=== PATIENT | male | born 1940 | race Hispanic/Latino ===

== ENCOUNTER 2017-03-14 13:01 | Observation (INO) | payer MEDICARE, BC ==
[2017-03-14] MEDS ORDERED: Sodium Chloride 0.9% 1,000 ML IV ONE ×2 (13:44→16:11)
--- NOTE | 2017-03-14 13:49 | C.PDOC ---
History Of Present Illness Jamaal is a 76 y/o male presenting to the ED for complaints of vomiting and diarrhea since Wednesday. He reports that he spoke to his PMD, Dr. Hall, who suggested symptoms were indicative of gastroenteritis. Patient reports symptoms continued today, and he developed decreased appetite, so he came to the ED. Denies any associated chest pain, shortness of breath, abdominal pain, fever, urinary frequency, dysuria, or incontinence. Denies recent travel or recent antibiotic use. PMD: Dr. Adrian Hall Time Seen by Provider: 03/14/17 13:22 Chief Complaint (Nursing): Abdominal Pain History Per: Patient History/Exam Limitations: no limitations Onset/Duration Of Symptoms: Days (x 3) Current Symptoms Are (Timing): Still Present Past Medical History Reviewed: Historical Data, Nursing Documentation, Vital Signs Vital Signs: Last Vital Signs Temp 98.3 F 03/14/17 16:45 Pulse 76 03/14/17 16:45 Resp 16 03/14/17 16:45 BP 142/67 03/14/17 16:45 Pulse Ox 99 03/14/17 18:56 - Medical History PMH: Depression Surgical History: Cholecystectomy Family History: States: No Known Family Hx - Social History Hx Alcohol Use: No Hx Substance Use: No Review Of Systems Except As Marked, All Systems Reviewed And Found Negative. Constitutional: Negative for: Fever Cardiovascular: Negative for: Chest Pain, Palpitations, Orthopnea, Edema, Light Headedness Respiratory: Negative for: Cough, Shortness of Breath, SOB with Excertion, Wheezing Gastrointestinal: Positive for: Nausea, Vomiting, Diarrhea. Negative for: Abdominal Pain Genitourinary: Negative for: Dysuria, Frequency, Incontinence Musculoskeletal: Negative for: Back Pain Skin: Negative for: Rash Neurological: Negative for: Weakness, Numbness Physical Exam - Physical Exam Appears: Well, Non-toxic, No Acute Distress Skin: Normal Color, Warm, Dry Head: Atraumatic, Normacephalic Eye(s): bilateral: Normal Inspection, PERRL, EOMI Neck: Normal, Supple Chest: Symmetrical Cardiovascular: Rhythm Regular, No Murmur Respiratory: Normal Breath Sounds, No Accessory Muscle Use Gastrointestinal/Abdominal: Normal Exam, Bowel Sounds (active), Soft, No Tenderness Back: Normal Inspection Extremity: Normal ROM Extremity: Bilateral: Atraumatic, Normal Color And Temperature, Normal ROM Neurological/Psych: Oriented x3, Normal Speech Gait: Steady ED Course And Treatment - Laboratory Results Result Diagrams: 03/14/17 14:13 03/14/17 14:13 O2 Sat by Pulse Oximetry: 99 (RA) Pulse Ox Interpretation: Normal Medical Decision Making Medical Decision Making: Time: 12:51 Patient has complaint of diarrhea and vomiting. Abdomen is soft NT /ND with no complaint of pain. Initial Plan: --Labs ordered --Sodium chloride IV 1000 ml at 1000 mls/hr --Pepcid 20 mg PO --Reglan 10 mg IV --Pending reevaluation 1:15PM. Patient admitted to ED-OBS for vomiting. ED OBSERVATION Discharge: Yes Date of observation admission: 03/14/17 Time of observation admission: 13:15 - Observation admission statement Patient is being placed in observation because:: vomiting and diarrhea - Goals of Observation Goals of observation are:: anti-emetic, fluid hydration - Progress Note Progress Note: 03/14/17 1:15 PM. Patient is resting. Vital signs stable. 3:15PM. Patient continuing to rest. Vital signs stable. 4:11PM. IV fluids continued. 5:15PM. Patient resting comfortably. Fluids infusing. Vitals stable. Pending PO challenge. 03/14/17 18:56 Labs and ua grossly normal. Patient had 2L IVF. On reeval, patient is now tolerating po. He has been monitored in ED for 6 hours and has had no additional episodes of vomiting or diarrhea in ED. On reeval, he has no complaints. Abdomen soft NT/ND and tolerating po. He reports that he will follow-up with PMD Disposition - Disposition Disposition: HOME/ ROUTINE Disposition Time: 18:56 Condition: GOOD - Clinical Impression Clinical Impression: Vomiting and diarrhea - Scribe Statement The provider has reviewed the documentation as recorded by the Geraldo Smith All medical record entries made by the Santoshibe were at my direction and personally dictated by me. I have reviewed the chart and agree that the record accurately reflects my personal performance of the history, physical exam, medical decision making, and the department course for this patient. I have also personally directed, reviewed, and agree with the discharge instructions and disposition.
[2017-03-14 14:17] LABS: BASO % 0.4 % (0.0-2.0); EOS # 0.1 K/uL (0.0-0.7); EOS % 0.8 % (0.0-4.0); HEMATOCRIT 40.6 % (35.0-51.0); LYMPH % 15.1 % (20.0-40.0); MEAN CELL VOLUME 93.6 fL (80.0-94.0); MEAN CORPUSCULAR HEMOGLOBIN 32.7 pg (27.0-31.0); MEAN PLATELET VOLUME 7.1 fL (7.2-11.7); MONO # 0.4 K/uL (0.0-0.8); MONO % 6.5 % (0.0-10.0); RED CELL DISTRIBUTION WIDTH 12.5 % (11.5-14.5); WHITE BLOOD COUNT 6.8 K/uL (4.8-10.8)
[2017-03-14] MEDS ORDERED: Sodium Chloride 0.9% 1,000 ML ONE (14:17)
[2017-03-14 14:29] LABS: CHLORIDE 101 mmol/L (98-107); POTASSIUM 4.3 mmol/L (3.6-5.2); SODIUM 142 mmol/L (132-148)
[2017-03-14 14:31] LABS: ALB/GLOB RATIO 1.4 (1.0-2.1); AST/SGOT 29 U/L (17-59); BILIRUBIN,TOTAL 1.1 mg/dL (0.2-1.3); CARBON DIOXIDE 25 mmol/L (22-30); GFR AFRICAN-AMERICAN > 60; TOTAL PROTEIN 7.2 g/dL (6.3-8.3)
[2017-03-14 14:32] LABS: ALKALINE PHOSPHATASE 75 U/L (38-126); ALT/SGPT 31 U/L (21-72); BLOOD UREA NITROGEN 14 mg/dL (9-20); CALCIUM 9.5 mg/dl (8.6-10.4); GLUCOSE,RANDOM 100 mg/dL (75-110); PHOSPHOROUS 2.9 mg/dL (2.5-4.5)
[2017-03-14 16:37] LABS: RBC URINE 1 /hpf (0-3); URINE BACTERIA RARE (<OCC); URINE BILIRUBIN NEGATIVE (NEGATIVE); URINE BLOOD NEGATIVE (NEGATIVE); URINE COLOR Yellow (YELLOW); URINE GLUCOSE (UA) NORMAL (Normal); URINE KETONE 1+ mg/dL (NEGATIVE); URINE LEUKOCYTE ESTERASE NEG Leu/uL (Negative); URINE PROTEIN NEGATIVE (NEGATIVE); WBC URINE 2 /hpf (0-5)
[2017-03-14 19:07] VITALS: BP 132/75; PULSE 73; RESP 20; TEMP 98.4; O2SAT 98
== END 2017-03-14 18:56 | disposition home or self-care (01) ==
LOC: C.ER 13:01 → C.9OBSV 13:15
PROVIDERS: ADMIT Emergency Medicine; ATTEND Emergency Medicine
DX: R19.7 Diarrhea, unspecified (principal); R11.10 Vomiting, unspecified; Z90.49 Acquired absence of other specified parts of digestive tract; F32.9 Major depressive disorder, single episode, unspecified
CPT/HCPCS: 80053; 81001; 82948; 83690; 83735; 84100; 85025; 96361; 96374; 99285; G0378; J2765; J7040

== ENCOUNTER 2017-08-07 07:58 | Inpatient (IN) | payer MEDICARE, BC ==
--- NOTE | 2017-08-07 08:39 | C.PDOC ---
Time Seen by Provider: 08/07/17 08:28 Chief Complaint (Nursing): Weakness/Neurological Deficit Past Medical History Vital Signs: Last Vital Signs Temp 98.2 F 08/07/17 08:02 Pulse 62 08/07/17 08:02 Resp 16 08/07/17 08:02 BP 120/70 08/07/17 08:02 Pulse Ox 100 08/07/17 08:02 - Medical History PMH: Depression Surgical History: Cholecystectomy - Social History Hx Alcohol Use: No Hx Substance Use: No ED Course And Treatment O2 Sat by Pulse Oximetry: 100 Disposition - Disposition
--- NOTE | 2017-08-07 08:46 | C.PDOC ---
History Of Present Illness 76 years old male presents to ED stating "I'm here because I can't sleep." Dnies pain, other associated symptoms not available. HPI and ROS limited due to Poor historian. LIMITED DUE TO POOR HISTORIAN "I'M HERE BECAUSE I CAN 'T SLEEP". DENIES PAIN, OTHER ASSOC SX. NO OTHER AVAIL FOR ADDL INFO ROS UTO EXAM NAD NONTOXIC APPEARS SLEEPY BUT AROUSABLE TO VOICE HEENT NEG LUNGS CTA B/L NO W/R/R ABD NEG NEURO POOR EFFORT. NO GROSS FOCAL DEF. ?FLAT AFFECT. PSYCH CALM, NO ACUTE PSYCHOSIS, ?INTOX\\ RECTAL +FECAL IMPACT W FECAL INCONT, BROWN STOOL. NO HEMORRHOID. SKIN WNL NO ULCERATIONS REMAINDER NEG Time Seen by Provider: 08/07/17 08:28 Chief Complaint (Nursing): Weakness/Neurological Deficit History Per: Patient History/Exam Limitations: clinical condition (Poor historian) Past Medical History Reviewed: Historical Data, Nursing Documentation, Vital Signs Vital Signs: Last Vital Signs Temp 97.9 F 08/07/17 12:00 Pulse 68 08/07/17 12:00 Resp 16 08/07/17 12:00 BP 136/67 08/07/17 12:00 Pulse Ox 99 08/07/17 12:00 - Medical History PMH: Depression Surgical History: Cholecystectomy Family History: States: No Known Family Hx - Social History Hx Alcohol Use: No Hx Substance Use: No Review Of Systems Review Of Systems: ROS cannot be obtained secondary to pt's inabilty to answer questions. Physical Exam - Physical Exam Appears: Well, Non-toxic, No Acute Distress, Other (SLEEPY BUT AROUSABLE TO VOICE; ) Skin: Normal Color, Warm, Dry, Other (NO ULCERATIONS) Head: Atraumatic, Normacephalic Eye(s): bilateral: Normal Inspection Ear(s): Bilateral: Normal Nose: Normal, No Discharge Oral Mucosa: Moist Chest: Symmetrical, No Tenderness Cardiovascular: Rhythm Regular Respiratory: Normal Breath Sounds (clear to auscultation bilaterally), No Rales , No Rhonchi, No Wheezing Gastrointestinal/Abdominal: Soft, No Tenderness Rectal: No Hemorrhoids, Other (RECTAL +FECAL IMPACT W FECAL INCONT, BROWN STOOL. ) Neurological/Psych: Other (No gross focal deficits;poor effort; Calm; no acute psychosis; Flat affect) ED Course And Treatment - Laboratory Results Result Diagrams: 08/07/17 10:04 08/07/17 10:04 O2 Sat by Pulse Oximetry: 100 (RA) Pulse Ox Interpretation: Normal - Other Rad CXR X-Ray: Viewed By Me, Read By Radiologist Interpretation: PROCEDURE: CHEST RADIOGRAPH, 1 VIEW. HISTORY: AMS. COMPARISON: No prior for comparison. FINDINGS: LUNGS: Clear. PLEURA: No pneumothorax or pleural fluid seen. CARDIOVASCULAR: Normal. OSSEOUS STRUCTURES: No significant abnormalities. VISUALIZED UPPER ABDOMEN: Normal. OTHER FINDINGS: None. IMPRESSION: No active disease. Progress - Re-Evaluation Re-evaluation Note: 08/07/17 09:00 BROTHER @ BEDSIDE: NEW ONSET URINARY AND FECAL INCONT, RECTAL PAIN X 2-3 DAYS. + WT LOSS X 6 MONTHS BUT EATING. NO FEVER, NV. CHANGE IN PSYCH MEDS X 3 WEEKS, CURRENT MENTAL STATUS "IMPROVING SINCE HE STARTED THE NEW MEDS". +PARKINSON SYMPTOMS MED INDUCED BUT IMPROVING. 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 PMD CHRONIC PARETHESIA, RADICULOPATHY, CHRONIC NECK WEAKNESS. CURRENTLY ON MULTIPLE PSYCH MEDS, INSOMNIA MEDS. NEURO DR DAYANARA DANIEL 08/07/17 13:28 D/W DR MYERS C/F PMD WILL ADMIT - Data Reviewed Data Reviewed: Lab, Diagnostic imaging, EKG, Old records - Continuity of Care Discussed patient case with:: Patient, Family-HIPPA compliant, Covering for PMD Medical Decision Making Medical Decision Making: Ordered BG, CT Head, EKG, CXR, blood work, and urinalysis. Administered Iv fluids and Fleet Enema. EKG: Normal sinus rhythm Right bundle branch block No prior EKG for comparison. CXR: Negative. Disposition Counseled Patient/Family Regarding: Studies Performed, Diagnosis - Disposition Disposition: HOSPITALIZED Disposition Time: 13:29 Condition: STABLE Instructions: Weakness (ED) Forms: [facility] ([place]) - POA Present On Arrival: None - Clinical Impression Clinical Impression: Generalized weakness, Weight loss, Constipation - Scribe Statement The provider has reviewed the documentation as recorded by the Santoshibvelma Red All medical record entries made by the Santoshibvelma were at my direction and personally dictated by me. I have reviewed the chart and agree that the record accurately reflects my personal performance of the history, physical exam, medical decision making, and the department course for this patient. I have also personally directed, reviewed, and agree with the discharge instructions and disposition. Decision To Admit - Pt Status Changed To: Hospital Disposition Of: Inpatient - Admit Certification Admit to Inpatient:: After my assessment, the patient will require hospitalization for at least two midnights. This is because of the severity of symptoms shown, intensity of services needed, and/or the medical risk in this patient being treated as an outpatient. - InPatient: Physician Admission Certification: I certify that this patient requires 2 or more midnights of care for the following reason:: SEE NOTE - . Bed Request Type: Regular Admitting Physician: Werner Huggins Patient Diagnosis: Generalized weakness, Weight loss, Constipation, Failure to thrive in adult
[2017-08-07] MEDS ORDERED: Sodium Chloride 0.9% 1,000 ML IV ONE (09:18)
[2017-08-07] MEDS ORDERED: Sodium Chloride 0.9% 1,000 ML ONE (09:35)
[2017-08-07 09:46] LABS: VENOUS BLOOD GAS BASE EXCESS -15.9 mmol/L (0.0-2.0); VENOUS BLOOD GAS PCO2 55 mmHg (40-60); VENOUS BLOOD GAS PO2 106 mm/Hg (30-55); VENOUS BLOOD PH 7.04 (7.32-7.43)
--- NOTE | 2017-08-07 09:53 | RAD ---
PROCEDURE: CHEST RADIOGRAPH, 1 VIEW HISTORY: AMS COMPARISON: No prior for comparison. FINDINGS: LUNGS: Clear. PLEURA: No pneumothorax or pleural fluid seen. CARDIOVASCULAR: Normal. OSSEOUS STRUCTURES: No significant abnormalities. VISUALIZED UPPER ABDOMEN: Normal. OTHER FINDINGS: None. IMPRESSION: No active disease.
[2017-08-07 10:13] LABS: BASO # 0.1 K/uL (0.0-0.2); BASO % 0.5 % (0.0-2.0); EOS # 0.2 K/uL (0.0-0.7); EOS % 2.5 % (0.0-4.0); HEMOGLOBIN 13.5 g/dL (12.0-18.0); LYMPH # 1.8 K/uL (1.0-4.3); MEAN CELL VOLUME 93.7 fL (80.0-94.0); MEAN CORPUSCULAR HEMOGLOBIN 32.5 pg (27.0-31.0); MEAN CORPUSCULAR HGB CONC 34.7 g/dL (33.0-37.0); MONO # 1.1 K/uL (0.0-0.8); MONO % 11.5 % (0.0-10.0); NEUT # 6.2 K/uL (1.8-7.0); NEUT % 66.5 % (50.0-75.0); NRBC % 0.1 % (0.0-2.0); RBC 4.15 Mil/uL (4.40-5.90); WHITE BLOOD COUNT 9.3 K/uL (4.8-10.8)
[2017-08-07 10:27] LABS: CALCIUM 8.9 mg/dl (8.6-10.4); GFR AFRICAN-AMERICAN > 60; GFR NON-AFRICAN AMERICAN > 60
[2017-08-07 10:34] LABS: ALB/GLOB RATIO 1.1 (1.0-2.1); ALBUMIN 4.2 g/dL (3.5-5.0); ALT/SGPT < 6 U/L (21-72); AST/SGOT 52 U/L (17-59); BLOOD UREA NITROGEN 12 mg/dL (9-20)
--- NOTE | 2017-08-07 10:35 | CT ---
PROCEDURE: CT HEAD WITHOUT CONTRAST. HISTORY: AMS COMPARISON: None available. TECHNIQUE: Axial computed tomography images were obtained through the head/brain without intravenous contrast. Radiation dose: Total exam DLP = 997.37 mGy-cm. This CT exam was performed using one or more of the following dose reduction techniques: Automated exposure control, adjustment of the mA and/or kV according to patient size, and/or use of iterative reconstruction technique. FINDINGS: HEMORRHAGE: No intracranial hemorrhage. BRAIN: No mass effect or edema. [id number] atrophy. Mild white matter changes are noted likely represent chronic microvascular ischemic disease. VENTRICLES: The ventricles are dilated out of proportion of mildly dilated sulci suggestive of central atrophy or normal pressure hydrocephalus. . CALVARIUM: Unremarkable. PARANASAL SINUSES: Unremarkable as visualized. No significant inflammatory changes. MASTOID AIR CELLS: Unremarkable as visualized. No inflammatory changes. OTHER FINDINGS: None. IMPRESSION: No evidence of acute intracranial hemorrhage intracranial collection mass effect or midline shift. Dilated ventricles out of proportion of sulci suggestive of central atrophy or normal pressure hydrocephalus.
[2017-08-07 10:49] LABS: ABG ALLEN TEST POS; ARTERIAL BLOOD GAS HCO3 26.3 mmol/L (21-28); ARTERIAL BLOOD GAS O2 SAT 97.9 % (95-98); ARTERIAL BLOOD GAS PCO2 42 mm/Hg (35-45); ARTERIAL BLOOD GAS PH 7.41 (7.35-7.45); ARTERIAL BLOOD GAS PO2 94 mm/Hg (80-100); ARTERIAL BLOOD GAS TCO2 27.9 mmol/L (22-28)
[2017-08-07 13:06] LABS: SQUAMOUS EPITHIAL < 1 /hpf (0-5); URINE BILIRUBIN NEGATIVE (NEGATIVE); URINE BLOOD NEGATIVE (NEGATIVE); URINE CLARITY Clear (Clear); URINE COLOR Straw (YELLOW); URINE GLUCOSE (UA) NORMAL (Normal); URINE LEUKOCYTE ESTERASE NEG Leu/uL (Negative); URINE NITRATE NEGATIVE (NEGATIVE); URINE PROTEIN NEGATIVE (NEGATIVE); URINE UROBILINOGEN NORMAL mg/dL (0.2-1.0)
[2017-08-07 13:33] LABS: BARBITURATES, UR NEGATIVE (NEGATIVE); BENZODIAZEPINES, UR NEGATIVE (NEGATIVE); OPIATES, UR NEGATIVE (NEGATIVE); PHENCYCLIDINE, UR NEGATIVE (NEGATIVE)
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
[2017-08-07] MEDS: Sodium Chloride 0.9% 1,000 ML IV SCH (15:30)
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
--- NOTE | 2017-08-08 01:00 | CP.PCM.PN ---
<Nancy Harrison - Last Filed: 08/08/17 00:58> Subjective - Date & Time of Evaluation Date of Evaluation: 08/08/17 Time of Evaluation: 00:58 - Subjective Subjective: Medicine Note for Hospitalist Service- Dr. Lainez Patient was seen and examined at bedside. No acute complaints. Patient is resting in bed comfortably. Denied fever, chills, headache, chest pain, SOB, abdominal pain, n/v/d/c, or urinary symptoms. Objective - Vital Signs/Intake and Output Vital Signs (last 24 hours): Temp Pulse Resp BP Pulse Ox 97.9 F 71 16 126/65 97 08/07/17 22:35 08/07/17 22:35 08/07/17 22:35 08/07/17 22:35 08/07/17 22:35 - Medications Medications: Current Medications Acetaminophen (Tylenol 325mg Tab) 650 mg PO Q6 PRN PRN Reason: Pain, Mild (1-3) Bupropion HCl (Wellbutrin) 100 mg PO DAILY REPLACED BY [facility] Carbidopa/Levodopa (Sinemet 10/100) 1 tab PO TID REPLACED BY [facility] Last Admin: 08/07/17 18:02 Dose: 1 tab Citalopram Hydrobromide (Celexa) 20 mg PO DAILY REPLACED BY [facility] Donepezil HCl (Aricept) 10 mg PO DAILY REPLACED BY [facility] Enoxaparin Sodium (Lovenox) 40 mg SC DAILY REPLACED BY [facility] Famotidine (Pepcid) 20 mg PO BID REPLACED BY [facility] Last Admin: 08/07/17 18:02 Dose: 20 mg Home Med (Brexpiprazole [Rexulti]) 0.25 mg PO DAILY REPLACED BY [facility] Sodium Chloride (Sodium Chloride 0.9%) 1,000 mls @ 75 mls/hr IV .[id number] REPLACED BY [facility] Last Admin: 08/07/17 15:30 Dose: 75 mls/hr Ibuprofen (Motrin Tab) 400 mg PO Q6 PRN PRN Reason: Fever >100.4 F Ondansetron HCl (Zofran Inj) 4 mg IVP Q6 PRN PRN Reason: Nausea/Vomiting Tamsulosin HCl (Flomax) 0.4 mg PO DAILY REPLACED BY [facility] - Labs Labs: 08/07/17 10:04 08/07/17 10:04 - Additional Findings Additional findings: - Head Exam Head Exam: ATRAUMATIC - Eye Exam Eye Exam: EOMI, PERRL Pupil Exam: PERRL - ENT Exam ENT Exam: Mucous Membranes Dry Additional comments: lips are dry cracked and have some feces on them - Respiratory Exam Respiratory Exam: Clear to Auscultation Bilateral, NORMAL BREATHING PATTERN. absent: Rales, Rhonchi, Wheezes - Cardiovascular Exam Cardiovascular Exam: REGULAR RHYTHM, +S1, +S2 Additional comments: EKG shows NSR w RBBB unknown if old or new - GI/Abdominal Exam GI & Abdominal Exam: Normal Bowel Sounds, Soft. absent: Rebound, Rigid, Tenderness Additional comments: patient is covered in feces - Extremities Exam Extremities exam: Positive for: full ROM. Negative for: calf tenderness - Back Exam Back exam: NORMAL INSPECTION. absent: CVA tenderness (L), CVA tenderness (R) - Neurological Exam Neurological exam: Alert (patient has waxing and waning mental status, makes coherent responses to questions however sometimes is not oriented to place or time ), CN II-XII Intact, Reflexes Normal - Psychiatric Exam Psychiatric exam: Flat Affect, Normal Affect - Skin Skin Exam: Warm Assessment and Plan - Assessment and Plan (Free Text) Plan: AMS -CT scan of head shows enlarged ventricles cannot r/o NPH -patient is urinating/defecating on self -1:1 close obvs for patient safety -consult neurology; Dr. Coronado; appreciate recs; thank you for your help; upon talking he does not think is NPH as patient has long standing psych history and parkinsons -UA negative, chest x-ray negative, electrolytes normal, lipid panel normal, IGT on previous blood work, TSH WNL -f/u B12, Folate, RPR, blood cultures, urine culture hx of parkinsons -c/w with carbidopa-levodopa 10/100 TID -Consult Dr. Coronado; appreciate recs; patient sees as outpatient -hx of cervical dystonia hx of dementia -c/w w/ donepazil 10mg PO Daily hx of bph -c/w flomax 0.4mg daily hx of depression/anxiety/sleep disorder -c/w citalopram 20mg daily -c/w rexulti 0.25mg daily -will hold benzos until psychiatry clears him -appreciate psych recs; psych consult placed; thank you for your help Proph Pepcid Lovenox Heart healthy Diet PT/OT eval and treat Social work eval Dispo: pending psych eval and neuro evaluation; patient was last seen "normal" yesterday as per neighbor; will monitor DW Dr. Lainez, Nancy Harrison DO, PGY-1 <Karine Lainez V - Last Filed: 08/08/17 14:16> Objective - Vital Signs/Intake and Output Vital Signs (last 24 hours): Temp Pulse Resp BP Pulse Ox 98.0 F 84 20 144/80 96 08/08/17 08:00 08/08/17 08:00 08/08/17 08:00 08/08/17 08:00 08/08/17 08:00 - Medications Medications: Current Medications Acetaminophen (Tylenol 325mg Tab) 650 mg PO Q6 PRN PRN Reason: Pain, Mild (1-3) Bupropion HCl (Wellbutrin) 100 mg PO DAILY REPLACED BY [facility] Last Admin: 08/08/17 10:28 Dose: 100 mg Carbidopa/Levodopa (Sinemet 10/100) 1 tab PO TID REPLACED BY [facility] Last Admin: 08/08/17 10:28 Dose: 1 tab Citalopram Hydrobromide (Celexa) 20 mg PO DAILY REPLACED BY [facility] Last Admin: 08/08/17 10:28 Dose: 20 mg Donepezil HCl (Aricept) 10 mg PO DAILY REPLACED BY [facility] Last Admin: 08/08/17 10:28 Dose: 10 mg Enoxaparin Sodium (Lovenox) 40 mg SC DAILY REPLACED BY [facility] Last Admin: 08/08/17 10:28 Dose: 40 mg Famotidine (Pepcid) 20 mg PO BID REPLACED BY [facility] Last Admin: 08/08/17 10:28 Dose: 20 mg Sodium Chloride (Sodium Chloride 0.9%) 1,000 mls @ 75 mls/hr IV .[id number] REPLACED BY [facility] Last Admin: 08/08/17 06:21 Dose: 75 mls/hr Ibuprofen (Motrin Tab) 400 mg PO Q6 PRN PRN Reason: Fever >100.4 F Ondansetron HCl (Zofran Inj) 4 mg IVP Q6 PRN PRN Reason: Nausea/Vomiting Pneumococcal Polyvalent Vaccine (Pneumovax 23 Vaccine) 0.5 ml IM .ONCE ONE Stop: 08/09/17 10:01 Tamsulosin HCl (Flomax) 0.4 mg PO DAILY REPLACED BY [facility] Last Admin: 08/08/17 10:28 Dose: 0.4 mg - Labs Labs: 08/07/17 10:04 08/07/17 10:04 Assessment and Plan (1) Altered mental status Status: Acute (2) Parkinsons disease Status: Chronic (3) Cervical dystonia Status: Chronic (4) Depression Status: Chronic (5) Constipation Status: Acute (6) Advised to contact social sciences lecturer Status: Acute (7) Prophylactic measure Status: Acute Attending/Attestation - Attestation I have personally seen and examined this patient.: Yes I have fully participated in the care of the patient.: Yes I have reviewed all pertinent clinical information, including history, physical exam and plan: Yes Notes (Text): Patient seen, examined, case discussed with medical assisting instructor. Patient seen this morning. Patient appears very clean. Patient appears very well -hydrated. Patient reports he would like to get out of bed and getting touch with his cousin. His cousin is not present at bedside. Patient is familiar with me from the emergency room but cannot remember my name. He should undergo for repeat head CT today. Patient reevaluated in the afternoon he is eating lunch at bedside. Patient did not initially allow blood work in the morning but has been collected discussed with his nurse. Patient was seen by Dr. Barnes. He defers to his primary psychiatrist Dr. Garcia, who may come to the hospital but this is unclear. Discussed case with psychiatrist, Dr. Pittman, patient has been chronically on temazepam foot but noted on the [facility] for at least one year she herself also reviewed as well given concern for contributing delirium factor of the principal at a benzodiazepine withdrawal for long acting benzo. Unclear if temazepam will show up on drug screen. She recommends for low dose Seroquel and recommends to involve outpatient psychiatrist, Bhanu Garcia ([phone]) [address] [place] [address]. Patient qualifies his [facility] with [facility]. Will need to follow-up with social sciences lecturer (not present on the weekends). 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 Coronado) on the case-->help appreciated. * CT Head (08/07/17): no evidence of acute intracranial hemorhage intracranial collection mass effect or midline shift. Dilated ventricles out of propportion of sulci suggestive of central atrophy or normal pressure hydrocephalus. * CT Head (08/08/17): no evidence of acute inracranial hemorrhage or significant interval change since the previous last exam. Atrophy and white matter changes are again noted. Dilated ventricles suggestive of central atrophy versus normal pressure hydrocephalus. * Discussed with neurology, does not believe this is NPH. Recommends hydration. Reviewed medications, continue neurologic medications. Continue IV fluids. UDS: negative. TSH pending (2) Parkinsons disease Status: Chronic Comment: * Sinemet 1 tab PO TID (3) Cervical dystonia Status: Chronic * per neurology, has had botulinum toxin recently for treatment per neurology note (4) Severe Depression Status: Chronic Comment: * Patient has been dependent on Tenezepam since Jul 2016, last use on Wednesday. * UDS does not show Benzos--Unclear if it will show in the UDS. * Reviewed of [facility] to confirm Tenezpam. * Patient has seen psychiatrist, Dr Garcia as outpatient * Psychologist: Dr Ty defers to patient outpatient psychiatrist. It is unclear if he comes here * Psychiatry: Dr Pittman-->I discussed the case with her will come to see the patient and recommends to involve patient's psychiatrist (5) Constipation Status: Acute Comment: * Patient has had phosphate enema in the ED on admission * Has had bowel movement (6) Advised to contact social sciences lecturer Status: Acute Comment: * Patient is requesting for prison placement. PT/OT eval. P * Patient is reporting that he feels like his cousin is trying to take away his apartment from him. Cousin not present on admission. Unable to contact cousin on admission; we were able to get in contact with the "daughter" who is the patient's neighbor who reports patient was normal as of two days ago. (7) Prophylactic measure Status: Acute Comment: IV fluids. GI ppx. DVT ppx. fall risk precaution. closer observation
[2017-08-08] MEDS: Sodium Chloride 0.9% 1,000 ML IV SCH ×2 (06:21→18:00)
--- NOTE | 2017-08-08 09:54 | CT ---
PROCEDURE: CT HEAD WITHOUT CONTRAST. HISTORY: AMS COMPARISON: Comparison is made with 08/07/2017 TECHNIQUE: Axial computed tomography images were obtained through the head/brain without intravenous contrast. Radiation dose: Total exam DLP = 967.01 mGy-cm. This CT exam was performed using one or more of the following dose reduction techniques: Automated exposure control, adjustment of the mA and/or kV according to patient size, and/or use of iterative reconstruction technique. FINDINGS: HEMORRHAGE: No intracranial hemorrhage. BRAIN: No mass effect or edema. Again seen is a moderate atrophy. Isap-ya-smdcypup white matter changes are again noted. VENTRICLES: The ventricles are again dilated out of proportion of the dilated sulci suggestive of central atrophy or normal pressure hydrocephalus. CALVARIUM: Unremarkable. PARANASAL SINUSES: Unremarkable as visualized. No significant inflammatory changes. MASTOID AIR CELLS: Unremarkable as visualized. No inflammatory changes. OTHER FINDINGS: None. IMPRESSION: No evidence of acute intracranial hemorrhage or significant interval change since the previous last exam. Atrophy and white matter changes are again noted. Dilated ventricles suggestive of central atrophy versus normal pressure hydrocephalus.
[2017-08-08] MEDS ORDERED: Influenza Vaccine 60 mcg/0.5 mL SYR (4YR UP) IM ONE (10:00)
[2017-08-08] MEDS ORDERED: Enoxaparin 40 mg Syringe SC SCH (10:00)
[2017-08-08] MEDS ORDERED: BREXPIPRAZOLE 0.25 MG PO SCH (10:00)
[2017-08-08 13:55] LABS: BASO % 0.6 % (0.0-2.0); EOS # 0.2 K/uL (0.0-0.7); EOS % 2.7 % (0.0-4.0); HEMOGLOBIN 12.9 g/dL (12.0-18.0); LYMPH # 1.4 K/uL (1.0-4.3); LYMPH % 21.1 % (20.0-40.0); MEAN CORPUSCULAR HEMOGLOBIN 32.5 pg (27.0-31.0); MEAN CORPUSCULAR HGB CONC 34.9 g/dL (33.0-37.0); MEAN PLATELET VOLUME 7.5 fL (7.2-11.7); MONO # 0.7 K/uL (0.0-0.8); MONO % 9.7 % (0.0-10.0); NEUT # 4.4 K/uL (1.8-7.0); NEUT % 65.9 % (50.0-75.0); RBC 3.96 Mil/uL (4.40-5.90); RED CELL DISTRIBUTION WIDTH 12.9 % (11.5-14.5); WHITE BLOOD COUNT 6.7 K/uL (4.8-10.8)
[2017-08-08 14:03] LABS: ALB/GLOB RATIO 1.2 (1.0-2.1); ALBUMIN 3.4 g/dL (3.5-5.0); ALT/SGPT 13 U/L (21-72); AST/SGOT 23 U/L (17-59); BLOOD UREA NITROGEN 10 mg/dL (9-20); CALCIUM 8.8 mg/dl (8.6-10.4); GFR AFRICAN-AMERICAN > 60; GFR NON-AFRICAN AMERICAN > 60
[2017-08-08 15:11] LABS: FOLATE 13.8 ng/mL
--- NOTE | 2017-08-08 18:34 | PN ---
DATE: 08/08/2017 NEUROLOGICAL PROBLEM: Change in mental status/toxic encephalopathy. PHYSICAL EXAMINATION: VITAL SIGNS: Blood pressure 144/80, mean arterial pressure of 101, respiratory rate 18, temperature 98 degrees Fahrenheit. GENERAL: The patient is awake, alert. He claims that he wetted his bed twice, nobody is taking care of him. NEUROLOGIC: Speech is clear. He moves all four extremities. No resting tremor. Seems to have increased tone in all 4 extremities. Examination is unchanged to compare with previous examination. Continue the present management and hydration. The patient is requested to have a psychiatrist to see him, to adjust the medications. Continue the present management. The patient should be able to get out of the bed and do physical therapy.. The patient will be followed while he is in the hospital. Demetrius Coronado MD
--- NOTE | 2017-08-08 20:09 | PCM.PSYCH ---
Initial Psychiatric Evaluation - Initial Psychiatric Evaluation Type of Admission: Voluntary Legal Status: Capacity Chief Complaint (in patient's own words): I'm fine History of Present Illness and Precipitating Events: This patient is a 76yo white male with the diagnosis of depression, insomnia, anxiety and Parkinson disease was consulted for medication management. Pt was seen and evaluated. Chart reviewed. Pt stated his mood is fine. He is sleep is good with the Temazepam (Valium). Pt stated that he is on Valium for more than 9-10 years. Additionally, he stated that Valium is a gift of an andrew to sleep. He reported he is compliant with his treatment and he denied side effects. He reproted he is not klonpin and Xanax. He further explained that doctor has given him recently, but he does not need it. He denied depressive symptoms including worthlessness, hopelessness. Currently he had no active suicidal or homicidal ideation, intent or plan. He reproted that he is feeling sad because he is not able to do his ADL's including eating food, or to walk. Pt stated that his cousin Hari help in his ADL's. However, he has paranoid delusions that Hari is stealing his money and property, etc. He denied perceptual disturbances. He denied physical or sexual abuse. Controlled substances on [place] controlled substance Klonopin filled Jul 30 .5mg 30 tabs, daily Xanax Jul 16 10 tabs 10 days Temazepam 15mg Jul 07 2017 for at least one year Carvidopa Levodopa 10-11 TID w food Citalopram 20mg daily Flomax 0.4mg daily Rexulti (brexpiprazole) 0.25mg daily Buproprion 100mg XR daily Social: He was born in [place], Single, never been and he has no children. Lives with his cousin, Hari, who brought him to the hospital. Needs help in ADL's (cleaning, washing, feeding) and walks with assistance of a cane/ walker. Nonsmoker non drinker, no illicit drugs, Current Medications: Active Medications Generic Name Dose Route Start Last Admin Trade Name Freq PRN Reason Stop Dose Admin Acetaminophen 650 mg 08/07/17 14:05 Tylenol 325mg Tab PO Q6 PRN Pain, Mild (1-3) Bupropion HCl 100 mg 08/08/17 10:00 08/08/17 10:28 Wellbutrin PO 100 mg DAILY TE Administration Carbidopa/Levodopa 1 tab 08/07/17 18:00 08/08/17 14:47 Sinemet 10/100 PO 1 tab TID TE Administration Citalopram Hydrobromide 20 mg 08/08/17 10:00 08/08/17 10:28 Celexa PO 20 mg DAILY TE Administration Donepezil HCl 10 mg 08/08/17 10:00 08/08/17 10:28 Aricept PO 10 mg DAILY TE Administration Enoxaparin Sodium 40 mg 08/08/17 10:00 08/08/17 10:28 Lovenox SC 40 mg DAILY TE Administration Famotidine 20 mg 08/07/17 18:00 08/08/17 10:28 Pepcid PO 20 mg BID TE Administration Sodium Chloride 1,000 mls @ 75 mls/hr 08/07/17 15:15 08/08/17 06:21 Sodium Chloride 0.9% IV 75 mls/hr .[id number] TE Administration Ibuprofen 400 mg 08/07/17 14:05 Motrin Tab PO Q6 PRN Fever >100.4 F Ondansetron HCl 4 mg 08/07/17 14:05 Zofran Inj IVP Q6 PRN Nausea/Vomiting Pneumococcal Polyvalent Vaccine 0.5 ml 08/09/17 10:00 Pneumovax 23 Vaccine IM 08/09/17 10:01 .ONCE ONE Tamsulosin HCl 0.4 mg 08/08/17 10:00 08/08/17 10:28 Flomax PO 0.4 mg DAILY TE Administration Temazepam 30 mg 08/08/17 22:00 Restoril PO HS PRN Insomnia Past Psychiatric History - Past Psychiatric History Prior Professional Help: OPD Prior Psychiatric Treatment: Pt is in treatment with Dr. Ryan Duration: more than 10 years Nature of Treatment: medication management History of Abuse: denied History of ETOH/Drug Use: denied History of Family Illness: denied Pertinent Medical Hx (Current Medical&Sleep Prob, Allergies): Allergies Allergy/AdvReac Type Severity Reaction Status Date / Time No Known Allergies Allergy Verified 03/14/17 13:30 Alprazolam [Xanax] 0.25 mg PO DAILY PRN 08/07/17 Brexpiprazole [Rexulti] 0.25 mg PO DAILY 08/07/17 Carbidopa/Levodopa [Carbidopa-Levodopa 10-100 Tab] 1 each PO TID 08/07/17 Citalopram [celeXA] 20 mg PO DAILY 08/07/17 Donepezil [Aricept] 10 mg PO DAILY 08/07/17 Tamsulosin [Flomax] 0.4 mg PO DAILY 08/07/17 Temazepam [Restoril] 15 mg PO DAILY 08/07/17 buPROPion SR [Wellbutrin SR] 100 mg PO DAILY 08/07/17 Depression, insomnia, Parkinson disease Mental Status Examination - Personal Presentation Personal Presentation: Looks older than stated age, Dressed appropriate to season Additional comments: He has visible tremors in his hands, difficulty in eating food. AAOx 1 ( oriented to place), MMSE 15 He is calm and cooperative - Affect Affect: Constricted - Motor Activity Motor Activity: Calm - Reliability in Providing Information Reliability in Providing Information: Poor, due to cognitve impairment - Speech Speech: Irrelevant - Mood Mood: Neutral Additional comments: I'm fine - Formal Thought Process Formal Thought Process: No Impairment, Paranoia Additional comments: Linear and fixative towards Dr. Ryan, and his cousin - Hallucinations/Delusions Additional comments: questionable paranoid delusions that his cousin is stealing his money and other belonging - Obsessions/Compulsions Obsessions: None Compulsions: None - Cognitive Functions Orientation: Place Sensorium: Alert Attention/Concentration: Easily distracted Abstract Thinking: [place] Estimate of Intelligence: Below average Judgement: Imparied, as evidence by: Poor judgement, Imparied, as evidence by: Lack of insight into illness Memory: Recent impaired, as evidence by: Inability to recall events of the day, Recent imparied as evidence by:Inability to complete 3/3 object recall - Risk Additional comments: Denied active SI, HI, intent or plan - Strength & Assets Inventory Strength & Assets Inventory: Family support, Employment history, Spiritual affiliations, Cooperative - Limitations Limitations: Other (chronic medical illness) DSM 5 DX - DSM 5 DSM 5 Diagnosis: Major Neurocognitive disorder - Recommended/Plan of Treatment Treatment Recommendations and Plan of Treatment: Recommend the following to consider: 1. lowering of Valium to 10 mg po HS for insomnia 2. d/c Klonopin and Xanax due to increase risk of confusion, and delirium. 3. d/c Rexulti 4. start Seroquel low doses 12.5 mg /25 mg for psychosis /behavioral issues related with dementia. 5. d/c all antidepressant Citalopram and Wellbutrin for time being 6. Start low dose of Remeron for if depression, insomnia and anxiety emerges. 7. Avoid anticholinergic/ Narcotic as it increases the risk of confusion and delirium. 8. Frequent reorientation to time, place and person. 9. Provide nursing elping aid at the bedside to help him in his ADL's. 10. Involve Dr. Ryan in pt's care. 11. Psych C/L team will follow. 12. Pt information and treatment plan was collaborated with the Primary care team/ Dr. Lainez. Time spend 38 minutes Projected ELOS: as per primary team Discharge Plan and Discharge Criteria: as per primary team
[2017-08-09 07:39] LABS: ALB/GLOB RATIO 1.1 (1.0-2.1); ALBUMIN 3.2 g/dL (3.5-5.0); ALT/SGPT 14 U/L (21-72); AST/SGOT 25 U/L (17-59); BLOOD UREA NITROGEN 12 mg/dL (9-20); CALCIUM 8.6 mg/dl (8.6-10.4); GFR AFRICAN-AMERICAN > 60; GFR NON-AFRICAN AMERICAN > 60
[2017-08-09 08:08] LABS: BASO % 0.7 % (0.0-2.0); EOS # 0.2 K/uL (0.0-0.7); EOS % 4.4 % (0.0-4.0); HEMOGLOBIN 12.4 g/dL (12.0-18.0); LYMPH # 1.5 K/uL (1.0-4.3); LYMPH % 26.2 % (20.0-40.0); MEAN CORPUSCULAR HEMOGLOBIN 32.9 pg (27.0-31.0); MEAN CORPUSCULAR HGB CONC 35.4 g/dL (33.0-37.0); MEAN PLATELET VOLUME 7.4 fL (7.2-11.7); MONO # 0.6 K/uL (0.0-0.8); MONO % 9.8 % (0.0-10.0); NEUT # 3.3 K/uL (1.8-7.0); NEUT % 58.9 % (50.0-75.0); RBC 3.77 Mil/uL (4.40-5.90); RED CELL DISTRIBUTION WIDTH 12.8 % (11.5-14.5); WHITE BLOOD COUNT 5.7 K/uL (4.8-10.8)
--- NOTE | 2017-08-09 08:58 | PN ---
DATE: 08/09/2017 TIME OF EVALUATION: 06:25 a.m. NEUROLOGICAL PROBLEM: Worsening change in mental status, probably secondary to metabolic encephalopathy, superimposed with polypharmacy. PHYSICAL EXAMINATION: GENERAL: The patient is hydrated. He is more awake and alert. He could be able to recognize my name. NEUROLOGIC: Speech is clear. No confusion. He knows why he is in the hospital at present. He moves all four extremities against the gravity. Increased tone in all four extremities. No resting tremor. Other examination, which is unchanged compared with my previous examination. ASSESSMENT AND PLAN: The patient is on Aricept, low dose of Sinemet from neurological point of view. Further medication from psychiatric point of view should be addressed and should be tapered off if it is not needed. The patient should be get out of the bed and physical therapy initiated. The patient is also suffering from significant cervical dystonia superimposed with a double stenosis. It is all old problem, which required to be addressed with physical therapy. Demetrius Coronado MD
[2017-08-09] MEDS ORDERED: Enoxaparin 60 mg Syringe SC SCH (10:00)
[2017-08-09] MEDS ORDERED: Pneumococcal 23-Valent Vaccine IM ONE (10:00)
--- NOTE | 2017-08-09 11:06 | CP.PCM.PN ---
<Lime SpringsRenate castrokan E - Last Filed: 08/09/17 14:22> Subjective - Date & Time of Evaluation Date of Evaluation: 08/09/17 Time of Evaluation: 09:40 - Subjective Subjective: Medicine progress note ( Dr. Alex Kemp) Patient was seen and examined at bedside. Patient reports that he is doing well. Patient had complaints of rectal pain with defecation but denies chest pain, SOB, palpitation, fever, chills, nausea, vomiting and abdominal pain. Patient really desires to get out of bed. Patient was not oriented to year, date, day and did not recall the name of the [place] president, however, he was oriented to location and month. Objective - Vital Signs/Intake and Output Vital Signs (last 24 hours): Temp Pulse Resp BP Pulse Ox 97.4 F L 65 20 122/72 96 08/09/17 08:08 08/09/17 08:08 08/09/17 08:08 08/09/17 08:08 08/09/17 08:08 Intake and Output: 08/09/17 08/09/17 06:59 18:59 Intake Total 1100 Output Total 800 Balance 300 - Medications Medications: Current Medications Acetaminophen (Tylenol 325mg Tab) 650 mg PO Q6 PRN PRN Reason: Pain, Mild (1-3) Bupropion HCl (Wellbutrin) 100 mg PO DAILY [facility] Last Admin: 08/09/17 09:42 Dose: 100 mg Carbidopa/Levodopa (Sinemet 10/100) 1 tab PO TID [facility] Last Admin: 08/09/17 09:42 Dose: 1 tab Citalopram Hydrobromide (Celexa) 20 mg PO DAILY [facility] Last Admin: 08/09/17 09:42 Dose: 20 mg Donepezil HCl (Aricept) 10 mg PO DAILY [facility] Last Admin: 08/09/17 09:42 Dose: 10 mg Enoxaparin Sodium (Lovenox) 40 mg SC DAILY [facility] Last Admin: 08/09/17 09:43 Dose: 40 mg Famotidine (Pepcid) 20 mg PO BID [facility] Last Admin: 08/09/17 09:42 Dose: 20 mg Sodium Chloride (Sodium Chloride 0.9%) 1,000 mls @ 75 mls/hr IV .[id number] [facility] Last Admin: 08/08/17 18:00 Dose: 75 mls/hr Ibuprofen (Motrin Tab) 400 mg PO Q6 PRN PRN Reason: Fever >100.4 F Ondansetron HCl (Zofran Inj) 4 mg IVP Q6 PRN PRN Reason: Nausea/Vomiting Tamsulosin HCl (Flomax) 0.4 mg PO DAILY TE Last Admin: 08/09/17 09:42 Dose: 0.4 mg Temazepam (Restoril) 30 mg PO HS PRN PRN Reason: Insomnia Last Admin: 08/08/17 22:00 Dose: 30 mg - Labs Labs: 08/09/17 07:11 08/09/17 07:11 - Constitutional Appears: Well, No Acute Distress - Head Exam Head Exam: ATRAUMATIC, NORMAL INSPECTION - Eye Exam Eye Exam: EOMI, Normal appearance - ENT Exam ENT Exam: Mucous Membranes Moist - Respiratory Exam Respiratory Exam: Clear to Ausculation Bilateral, NORMAL BREATHING PATTERN. absent: Rhonchi, Wheezes - Cardiovascular Exam Cardiovascular Exam: REGULAR RHYTHM, +S1, +S2 - GI/Abdominal Exam GI & Abdominal Exam: Soft, Normal Bowel Sounds. absent: Distended, Firm, Guarding, Tenderness - Extremities Exam Extremities Exam: Normal Inspection. absent: Calf Tenderness, Pedal Edema - Neurological Exam Neurological Exam: Alert, Awake. absent: Oriented x3 - Psychiatric Exam Psychiatric exam: Depressed - Skin Skin Exam: Normal Color Assessment and Plan (1) Altered mental status Assessment & Plan: Neurology Consult, Dr. Coronado----> Help appreciated Imaging: Head CT (08/07/17): No evidence of acute intracranial hemorrhage intracranial collection mass effect or midline shift. Dilated ventricles out of proportion of sulci suggestive of central atrophy or normal pressure hydrocephalus. Head CT (08/08/16): No evidence of acute intracranial hemorrhage or significant interval change since the previous last exam. Atrophy and white matter changes are again noted. Dilated ventricles suggestive of central atrophy versus normal pressure hydrocephalus. Chest X-ray (08/07/17): No active disease Labs: UDS: Negative RPR: Negative Status: Acute (2) Parkinsons disease Assessment & Plan: Hx of parkinsons Neurology Consult, Dr. Coronado---> Help appreciated Medications: * Carbidopa/Levodopa 1 tab PO TID Status: Chronic (3) History of dementia Assessment & Plan: Medications: * Aricept 10mg PO daily Status: Acute (4) Benign prostate hyperplasia Assessment & Plan: hx of BPH Medication: * Flomax 0.4mg PO daily Status: Chronic (5) History of psychiatric disorder Assessment & Plan: Psychiatric consult, Dr. Valdivia----> Help appreciated Depression, Anxiety and Insomnia * Celexa 20mg PO daily * Wellbutrin 100mg PO daily * Temazepam 30mg PO HS PRN ( Confirmed with patient's PMD) Status: Acute (6) Cervical dystonia Assessment & Plan: As per charting, has had botulinum toxin recently for treatment Status: Chronic (7) Prophylactic measure Assessment & Plan: GI: Pepcid 20mg PO daily DVT: SCDs, Lovenox 40mg SC daily PT/OT Disposition: As per charting, patient wants a senior living placement Status: Acute <Khoi Kemp - Last Filed: 08/09/17 17:55> Objective - Vital Signs/Intake and Output Vital Signs (last 24 hours): Temp Pulse Resp BP Pulse Ox 98.0 F 78 18 103/68 95 08/09/17 15:00 08/09/17 15:00 08/09/17 15:00 08/09/17 15:00 08/09/17 15:00 Intake and Output: 08/09/17 08/09/17 06:59 18:59 Intake Total 1100 Output Total 800 200 Balance 300 -200 - Medications Medications: Current Medications Acetaminophen (Tylenol 325mg Tab) 650 mg PO Q6 PRN PRN Reason: Pain, Mild (1-3) Bupropion HCl (Wellbutrin) 100 mg PO DAILY [facility] Last Admin: 08/09/17 09:42 Dose: 100 mg Carbidopa/Levodopa (Sinemet 10/100) 1 tab PO TID [facility] Last Admin: 08/09/17 13:29 Dose: 1 tab Citalopram Hydrobromide (Celexa) 20 mg PO DAILY [facility] Last Admin: 08/09/17 09:42 Dose: 20 mg Donepezil HCl (Aricept) 10 mg PO DAILY [facility] Last Admin: 08/09/17 09:42 Dose: 10 mg Enoxaparin Sodium (Lovenox) 40 mg SC DAILY [facility] Last Admin: 08/09/17 09:43 Dose: 40 mg Famotidine (Pepcid) 20 mg PO BID [facility] Last Admin: 08/09/17 09:42 Dose: 20 mg Sodium Chloride (Sodium Chloride 0.9%) 1,000 mls @ 75 mls/hr IV .[id number] [facility] Last Admin: 08/08/17 18:00 Dose: 75 mls/hr Ibuprofen (Motrin Tab) 400 mg PO Q6 PRN PRN Reason: Fever >100.4 F Ondansetron HCl (Zofran Inj) 4 mg IVP Q6 PRN PRN Reason: Nausea/Vomiting Tamsulosin HCl (Flomax) 0.4 mg PO DAILY [facility] Last Admin: 08/09/17 09:42 Dose: 0.4 mg Temazepam (Restoril) 30 mg PO HS PRN PRN Reason: Insomnia Last Admin: 08/08/17 22:00 Dose: 30 mg - Labs Labs: 08/09/17 07:11 08/09/17 07:11 Attending/Attestation - Attestation I have personally seen and examined this patient.: Yes I have fully participated in the care of the patient.: Yes I have reviewed all pertinent clinical information, including history, physical exam and plan: Yes Notes (Text): 08/09/17 17:46 Patient was seen and examined at 11:45 AM 08/09/17 Bed 669 B. Exam, assessment and plan were gone over with the resident. Also on ROS: Stated that he need to use the bathroom (have a bowel movement: he was helped onto bed harp at the end of exam) NO other complaints upon FULL ROS Exam: General: Knows where he is, Could not provide date, NAD HEENT: NCA, EOMI, PERRLA, NO cervical/supraclavicular/submandibular lymphadenopathy, NO pharyngeal erythema/exudate, Nasal Turbinates are nonerythematous/nonedematous, Oral Mucosa is moist Cardio: NS1 and NS2, NO M/R/G Resp: CTA B/L, NO R/R/W GI: BSx4, Soft, NT, NO HSM, NO guarding/rebound tenderness Ext: Pulses are strong and equal, Capillary Refill is 2 seconds, NO edema Neuro: CN II through XII are grossly intact Assessments: 1). Altered Mental Status CT Head #2 08/08/17 showed atrophy white matter changes, NO hemorrhage and NO significant interval change Blood Culture 08/07/17 negative to date Urine Culture 08/07/17 NO growth 2). Hx Parkinson's Disease Snemet 3). Dementia Donepezil 4). Cervical Dystonia 5). Depression/Anxiety/Sleep Disorder Rexulti Wellbutrin Celexa Tamezapam 6). Constipation 7). Hx BPH Flomax Spoke with Director Of National Sales Araceli and she along with Tree Planter Agnieszka are trying to arrange for [facility] and from there possibly product support rep [place]. Khoi Kemp D.O.
--- NOTE | 2017-08-09 22:04 | CARD ---
APPROVED REPORT EKG Measurement Heart [id number] <Conclusion> Normal sinus rhythm Right bundle branch block Abnormal ECG
[2017-08-10] MEDS: Sodium Chloride 0.9% 1,000 ML IV SCH ×2 (05:27→14:11)
[2017-08-10 07:24] LABS: BASO % 0.6 % (0.0-2.0); EOS # 0.2 K/uL (0.0-0.7); EOS % 4.3 % (0.0-4.0); HEMOGLOBIN 12.5 g/dL (12.0-18.0); LYMPH # 1.4 K/uL (1.0-4.3); LYMPH % 24.8 % (20.0-40.0); MEAN CELL VOLUME 93.6 fL (80.0-94.0); MEAN CORPUSCULAR HEMOGLOBIN 32.3 pg (27.0-31.0); MEAN CORPUSCULAR HGB CONC 34.5 g/dL (33.0-37.0); MEAN PLATELET VOLUME 7.5 fL (7.2-11.7); MONO # 0.5 K/uL (0.0-0.8); MONO % 8.3 % (0.0-10.0); NEUT # 3.4 K/uL (1.8-7.0); NRBC % 0.1 % (0.0-2.0); RBC 3.86 Mil/uL (4.40-5.90); RED CELL DISTRIBUTION WIDTH 12.6 % (11.5-14.5); WHITE BLOOD COUNT 5.5 K/uL (4.8-10.8)
[2017-08-10 07:40] LABS: ALBUMIN 3.3 g/dL (3.5-5.0); ALT/SGPT 17 U/L (21-72); AST/SGOT 15 U/L (17-59); BLOOD UREA NITROGEN 10 mg/dL (9-20); CALCIUM 8.2 mg/dl (8.6-10.4); GFR AFRICAN-AMERICAN > 60; GFR NON-AFRICAN AMERICAN > 60; MAGNESIUM 1.9 mg/dL (1.6-2.3)
[2017-08-10] MEDS ORDERED: Enoxaparin 40 mg Syringe SC SCH (10:00)
--- NOTE | 2017-08-10 12:06 | PN ---
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 PHYSICAL EXAMINATION: VITAL SIGNS: Blood pressure 130/75, mean artery pressure of 93, respiratory rate 18, temperature afebrile. Psychiatrist consult and recommendation is well appreciated. The patient is not on sedation due to the impending delirium. The patient admits he could not sleep at all. Examination which is unchanged, no sign of extrapyramidal symptoms and signs. The patient should get out of the bed and physical therapy should be started. Considering his insomnia, the patient may be benefitted with lower dose of Klonopin only if psychiatrist agrees. Demetrius Coronado MD
--- NOTE | 2017-08-10 14:06 | CP.PCM.DIS ---
<Garret Huerta E - Last Filed: 08/10/17 18:12> Provider - Provider Date of Admission: 08/07/17 13:41 Attending physician: Karine Laienz DO Time Spent in preparation of Discharge (in minutes): 35 Diagnosis - Discharge Diagnosis (1) Altered mental status Status: Acute (2) Parkinsons disease Status: Chronic (3) History of dementia Status: Acute (4) Benign prostate hyperplasia Status: Chronic (5) History of psychiatric disorder Status: Acute (6) Cervical dystonia Status: Chronic (7) Prophylactic measure Status: Acute Hospital Course - Lab Results Lab Results: Micro Results 08/07/17 16:30 Blood-Venous Blood Culture - Preliminary NO GROWTH AFTER 48 HOURS 08/07/17 16:00 Blood-Venous Blood Culture - Preliminary NO GROWTH AFTER 48 HOURS 08/07/17 17:18 Urine,Clean Catch Urine Culture - Final No Growth (<1,000 CFU/ML) Most Recent Lab Values WBC 5.5 K/uL (4.8-10.8) 08/10/17 07:05 RBC 3.86 Mil/uL (4.40-5.90) L 08/10/17 07:05 Hgb 12.5 g/dL (12.0-18.0) 08/10/17 07:05 Hct 36.2 % (35.0-51.0) 08/10/17 07:05 MCV 93.6 fL (80.0-94.0) 08/10/17 07:05 MCH 32.3 pg (27.0-31.0) H 08/10/17 07:05 MCHC 34.5 g/dL (33.0-37.0) 08/10/17 07:05 RDW 12.6 % (11.5-14.5) 08/10/17 07:05 Plt Count 274 K/uL (130-400) 08/10/17 07:05 MPV 7.5 fL (7.2-11.7) 08/10/17 07:05 Neut % (Auto) 62.0 % (50.0-75.0) 08/10/17 07:05 Lymph % (Auto) 24.8 % (20.0-40.0) 08/10/17 07:05 [place] % (Auto) 8.3 % (0.0-10.0) 08/10/17 07:05 Eos % (Auto) 4.3 % (0.0-4.0) H 08/10/17 07:05 Baso % (Auto) 0.6 % (0.0-2.0) 08/10/17 07:05 Neut # (Auto) 3.4 K/uL (1.8-7.0) 08/10/17 07:05 Lymph # (Auto) 1.4 K/uL (1.0-4.3) 08/10/17 07:05 [place] # (Auto) 0.5 K/uL (0.0-0.8) 08/10/17 07:05 Eos # (Auto) 0.2 K/uL (0.0-0.7) 08/10/17 07:05 Baso # (Auto) 0.0 K/uL (0.0-0.2) 08/10/17 07:05 Puncture Site Lra 08/07/17 10:46 pCO2 42 mm/Hg (35-45) 08/07/17 10:46 pO2 94 mm/Hg (80-100) 08/07/17 10:46 HCO3 26.3 mmol/L (21-28) 08/07/17 10:46 ABG pH 7.41 (7.35-7.45) 08/07/17 10:46 ABG Total CO2 27.9 mmol/L (22-28) 08/07/17 10:46 ABG O2 Saturation 97.9 % (95-98) 08/07/17 10:46 ABG Base Excess 1.7 mmol/L (-2.0-3.0) 08/07/17 10:46 Devan Test Pos 08/07/17 10:46 ABG Potassium 3.4 mmol/L (3.6-5.2) L 08/07/17 10:46 VBG pH 7.04 (7.32-7.43) L* 08/07/17 09:42 VBG pCO2 55 mmHg (40-60) 08/07/17 09:42 VBG HCO3 12.5 mmol/L 08/07/17 09:42 VBG Total CO2 16.6 mmol/L (22-28) L 08/07/17 09:42 VBG O2 Sat (Calc) 97.7 % (40-65) H 08/07/17 09:42 VBG Base Excess -15.9 mmol/L (0.0-2.0) L 08/07/17 09:42 A-a O2 Difference 3.0 mm/Hg 08/07/17 10:46 Respiratory Index 0 08/07/17 10:46 Sodium 139.0 mmol/l (132-148) 08/07/17 10:46 Chloride 109.0 mmol/L (98-107) H 08/07/17 10:46 Glucose 96 mg/dl (75-110) 08/07/17 10:46 Lactate 0.5 mmol/L (0.7-2.1) L 08/07/17 10:46 FiO2 21.0 % 08/07/17 10:46 Crit Value Called To Dr ambrose 08/07/17 09:42 Crit Value Called By Celestine mcdonald maintenance job titles 08/07/17 09:42 Crit Value Read Back Y 08/07/17 09:42 Blood Gas Notified Time 945 08/07/17 09:42 Sodium 137 mmol/L (132-148) 08/10/17 07:05 Potassium 3.8 mmol/L (3.6-5.2) 08/10/17 07:05 Chloride 104 mmol/L (98-107) 08/10/17 07:05 Carbon Dioxide 23 mmol/L (22-30) 08/10/17 07:05 Anion Gap 14 (10-20) 08/10/17 07:05 BUN 10 mg/dL (9-20) 08/10/17 07:05 Creatinine 0.9 mg/dL (0.8-1.5) 08/10/17 07:05 Est GFR ( Amer) > 60 08/10/17 07:05 Est GFR (Non-Af Amer) > 60 08/10/17 07:05 POC Glucose (mg/dL) 80 mg/dL (65-110) 08/10/17 11:38 Random Glucose 82 mg/dL (75-110) 08/10/17 07:05 Calcium 8.2 mg/dl (8.6-10.4) L 08/10/17 07:05 Phosphorus 3.4 mg/dL (2.5-4.5) 08/10/17 07:05 Magnesium 1.9 mg/dL (1.6-2.3) 08/10/17 07:05 Total Bilirubin 0.5 mg/dL (0.2-1.3) 08/10/17 07:05 AST 15 U/L (17-59) L D 08/10/17 07:05 ALT 17 U/L (21-72) L D 08/10/17 07:05 Alkaline Phosphatase 65 U/L (38-126) 08/10/17 07:05 Total Protein 6.6 g/dL (6.3-8.3) 08/10/17 07:05 Albumin 3.3 g/dL (3.5-5.0) L 08/10/17 07:05 Globulin 3.3 gm/dL (2.2-3.9) 08/10/17 07:05 Albumin/Globulin Ratio 1.0 (1.0-2.1) 08/10/17 07:05 Vitamin B12 824 pg/mL (239-931) 08/08/17 13:37 Folate 13.8 ng/mL 08/08/17 13:37 Free T4 1.26 ng/dL (0.78-2.19) 08/07/17 15:10 Arterial Blood Potassium 3.4 mmol/L (3.6-5.2) L 08/07/17 10:46 Urine Color Straw (YELLOW) 08/07/17 12:52 Urine Clarity Clear (Clear) 08/07/17 12:52 Urine pH 7.0 (5.0-8.0) 08/07/17 12:52 Ur Specific [place] 1.004 (1.003-1.030) 08/07/17 12:52 Urine Protein Negative mg/dL (NEGATIVE) 08/07/17 12:52 Urine Glucose (UA) Normal mg/dL (Normal) 08/07/17 12:52 Urine Ketones Negative mg/dL (NEGATIVE) 08/07/17 12:52 Urine Blood Negative (NEGATIVE) 08/07/17 12:52 Urine Nitrate Negative (NEGATIVE) 08/07/17 12:52 Urine Bilirubin Negative (NEGATIVE) 08/07/17 12:52 Urine Urobilinogen Normal mg/dL (0.2-1.0) 08/07/17 12:52 Ur Leukocyte Esterase Neg Donato/uL (Negative) 08/07/17 12:52 Urine WBC (Auto) 1 /hpf (0-5) 08/07/17 12:52 Urine RBC (Auto) < 1 /hpf (0-3) 08/07/17 12:52 Ur Squamous Epith Cells < 1 /hpf (0-5) 08/07/17 12:52 Hyaline Casts 3-5 /lpf (0-2) H 08/07/17 12:52 Urine Opiates Screen Negative (NEGATIVE) 08/07/17 12:52 Urine Methadone Screen Negative (NEGATIVE) 08/07/17 12:52 Ur Barbiturates Screen Negative (NEGATIVE) 08/07/17 12:52 Ur Phencyclidine Scrn Negative (NEGATIVE) 08/07/17 12:52 Ur Amphetamines Screen Negative (NEGATIVE) 08/07/17 12:52 U Benzodiazepines Scrn Negative (NEGATIVE) 08/07/17 12:52 U Oth Cocaine Metabols Negative (NEGATIVE) 08/07/17 12:52 U Cannabinoids Screen Negative (NEGATIVE) 08/07/17 12:52 RPR Nonreactive (NONREACTIVE) 08/08/17 13:37 - Hospital Course Hospital Course: HPI (As per admission): This patient is a 76yo M w/ a history of psych disorders, unknown as the patient cannot remember them, who states that he has no idea why he is in the hospital. According to the neighbor, and brother per ED records, the patient has been mentally very with it needing physical assistance only with ADL and IADL. The patient is currently denying any physical symptoms, but states he has been having trouble sleeping for "many years" for which he sees a neurologist, Zulema Hatch, in [place]. According to the neighbor, the patient was seen yesterday "looking very good and making complete sense" and she states she has known him for 64 years at this point. Hospital Course: Patient was admitted with the diagnosis of altered mental status change. Neurologist, Dr. Coronado was consulted, who reported that he believes patient clinical status was due to long-standing psychiatry history and parkinsons and recommended hydration. Over the course of admission, patient remained medically stable and was managed on the appropriate medications for his chronic medical issues, while awaiting care home placement. Patient was stable upon discharge and was discharge to [facility] with appropriate medications. Pertinent Imaging/Labs: Head CT (08/07/17): No evidence of acute intracranial hemorrhage intracranial collection mass effect or midline shift. Dilated ventricles out of proportion of sulci suggestive of central atrophy or normal pressure hydrocephalus. Head CT (08/08/16): No evidence of acute intracranial hemorrhage or significant interval change since the previous last exam. Atrophy and white matter changes are again noted. Dilated ventricles suggestive of central atrophy versus normal pressure hydrocephalus. Chest X-ray (08/07/17): No active disease UDS: Negative RPR: Negative Blood Culture 08/07/17: negative to date Urine Culture 08/07/17: NO growth This is a brief summary of events. For a complete record, please refer to the medical records Discharge Exam - Head Exam Head Exam: ATRAUMATIC, NORMAL INSPECTION - Eye Exam Eye Exam: EOMI, Normal appearance - Respiratory Exam Respiratory Exam: Clear to PA & Lateral, NORMAL BREATHING PATTERN. absent: UNREMARKABLE - Cardiovascular Exam Cardiovascular Exam: REGULAR RHYTHM, +S1, +S2 - GI/Abdominal Exam GI & Abdominal Exam: Normal Bowel Sounds, Soft. absent: Diminished Bowel Sounds , Distended, Firm, Guarding, Tenderness - Extremities Exam Extremities exam: normal inspection - Neurological Exam Neurological exam: Alert - Psychiatric Exam Psychiatric exam: Depressed - Skin Skin Exam: Normal Color Discharge Plan - Follow Up Plan Condition: STABLE Disposition: REHAB FACILITY/REHAB UNIT Instructions: Heart Healthy Diet, Constipation, Adult (DC), Altered Mental Status (DC), Failure to Thrive, Adult (DC) Additional Instructions: Please discharge to [facility] when bed available and transportation arrangments are completed. Please see Medical Reconciliation for medications that need to be continued while at Subacute Rehab. Patient will need to follow up with the following physicians after his discharge from [facility]: PMD Dr. Hall Neurologist Dr. Coronado Psychiatrist Dr. Hudson Referrals: Demetrius Coronado MD [Staff Provider] - <Khoi Kemp - Last Filed: 08/10/17 19:20> Provider - Provider Date of Admission: 08/07/17 13:41 Attending physician: Karine Lainez DO Hospital Course - Lab Results Lab Results: Micro Results 08/07/17 16:30 Blood-Venous Blood Culture - Preliminary NO GROWTH AFTER 3 DAYS 08/07/17 16:00 Blood-Venous Blood Culture - Preliminary NO GROWTH AFTER 3 DAYS 08/07/17 17:18 Urine,Clean Catch Urine Culture - Final No Growth (<1,000 CFU/ML) Most Recent Lab Values WBC 5.5 K/uL (4.8-10.8) 08/10/17 07:05 RBC 3.86 Mil/uL (4.40-5.90) L 08/10/17 07:05 Hgb 12.5 g/dL (12.0-18.0) 08/10/17 07:05 Hct 36.2 % (35.0-51.0) 08/10/17 07:05 MCV 93.6 fL (80.0-94.0) 08/10/17 07:05 MCH 32.3 pg (27.0-31.0) H 08/10/17 07:05 MCHC 34.5 g/dL (33.0-37.0) 08/10/17 07:05 RDW 12.6 % (11.5-14.5) 08/10/17 07:05 Plt Count 274 K/uL (130-400) 08/10/17 07:05 MPV 7.5 fL (7.2-11.7) 08/10/17 07:05 Neut % (Auto) 62.0 % (50.0-75.0) 08/10/17 07:05 Lymph % (Auto) 24.8 % (20.0-40.0) 08/10/17 07:05 [place] % (Auto) 8.3 % (0.0-10.0) 08/10/17 07:05 Eos % (Auto) 4.3 % (0.0-4.0) H 08/10/17 07:05 Baso % (Auto) 0.6 % (0.0-2.0) 08/10/17 07:05 Neut # (Auto) 3.4 K/uL (1.8-7.0) 08/10/17 07:05 Lymph # (Auto) 1.4 K/uL (1.0-4.3) 08/10/17 07:05 [place] # (Auto) 0.5 K/uL (0.0-0.8) 08/10/17 07:05 Eos # (Auto) 0.2 K/uL (0.0-0.7) 08/10/17 07:05 Baso # (Auto) 0.0 K/uL (0.0-0.2) 08/10/17 07:05 Puncture Site Lra 08/07/17 10:46 pCO2 42 mm/Hg (35-45) 08/07/17 10:46 pO2 94 mm/Hg (80-100) 08/07/17 10:46 HCO3 26.3 mmol/L (21-28) 08/07/17 10:46 ABG pH 7.41 (7.35-7.45) 08/07/17 10:46 ABG Total CO2 27.9 mmol/L (22-28) 08/07/17 10:46 ABG O2 Saturation 97.9 % (95-98) 08/07/17 10:46 ABG Base Excess 1.7 mmol/L (-2.0-3.0) 08/07/17 10:46 Devan Test Pos 08/07/17 10:46 ABG Potassium 3.4 mmol/L (3.6-5.2) L 08/07/17 10:46 VBG pH 7.04 (7.32-7.43) L* 08/07/17 09:42 VBG pCO2 55 mmHg (40-60) 08/07/17 09:42 VBG HCO3 12.5 mmol/L 08/07/17 09:42 VBG Total CO2 16.6 mmol/L (22-28) L 08/07/17 09:42 VBG O2 Sat (Calc) 97.7 % (40-65) H 08/07/17 09:42 VBG Base Excess -15.9 mmol/L (0.0-2.0) L 08/07/17 09:42 A-a O2 Difference 3.0 mm/Hg 08/07/17 10:46 Respiratory Index 0 08/07/17 10:46 Sodium 139.0 mmol/l (132-148) 08/07/17 10:46 Chloride 109.0 mmol/L (98-107) H 08/07/17 10:46 Glucose 96 mg/dl (75-110) 08/07/17 10:46 Lactate 0.5 mmol/L (0.7-2.1) L 08/07/17 10:46 FiO2 21.0 % 08/07/17 10:46 Crit Value Called To Dr ambrose 08/07/17 09:42 Crit Value Called By Celestine mcdonald maintenance job titles 08/07/17 09:42 Crit Value Read Back Y 08/07/17 09:42 Blood Gas Notified Time 945 08/07/17 09:42 Sodium 137 mmol/L (132-148) 08/10/17 07:05 Potassium 3.8 mmol/L (3.6-5.2) 08/10/17 07:05 Chloride 104 mmol/L (98-107) 08/10/17 07:05 Carbon Dioxide 23 mmol/L (22-30) 08/10/17 07:05 Anion Gap 14 (10-20) 08/10/17 07:05 BUN 10 mg/dL (9-20) 08/10/17 07:05 Creatinine 0.9 mg/dL (0.8-1.5) 08/10/17 07:05 Est GFR ( Amer) > 60 08/10/17 07:05 Est GFR (Non-Af Amer) > 60 08/10/17 07:05 POC Glucose (mg/dL) 112 mg/dL (65-110) H 08/10/17 17:04 Random Glucose 82 mg/dL (75-110) 08/10/17 07:05 Calcium 8.2 mg/dl (8.6-10.4) L 08/10/17 07:05 Phosphorus 3.4 mg/dL (2.5-4.5) 08/10/17 07:05 Magnesium 1.9 mg/dL (1.6-2.3) 08/10/17 07:05 Total Bilirubin 0.5 mg/dL (0.2-1.3) 08/10/17 07:05 AST 15 U/L (17-59) L D 08/10/17 07:05 ALT 17 U/L (21-72) L D 08/10/17 07:05 Alkaline Phosphatase 65 U/L (38-126) 08/10/17 07:05 Total Protein 6.6 g/dL (6.3-8.3) 08/10/17 07:05 Albumin 3.3 g/dL (3.5-5.0) L 08/10/17 07:05 Globulin 3.3 gm/dL (2.2-3.9) 08/10/17 07:05 Albumin/Globulin Ratio 1.0 (1.0-2.1) 08/10/17 07:05 Vitamin B12 824 pg/mL (239-931) 08/08/17 13:37 Folate 13.8 ng/mL 08/08/17 13:37 Free T4 1.26 ng/dL (0.78-2.19) 08/07/17 15:10 Arterial Blood Potassium 3.4 mmol/L (3.6-5.2) L 08/07/17 10:46 Urine Color Straw (YELLOW) 08/07/17 12:52 Urine Clarity Clear (Clear) 08/07/17 12:52 Urine pH 7.0 (5.0-8.0) 08/07/17 12:52 Ur Specific [place] 1.004 (1.003-1.030) 08/07/17 12:52 Urine Protein Negative mg/dL (NEGATIVE) 08/07/17 12:52 Urine Glucose (UA) Normal mg/dL (Normal) 08/07/17 12:52 Urine Ketones Negative mg/dL (NEGATIVE) 08/07/17 12:52 Urine Blood Negative (NEGATIVE) 08/07/17 12:52 Urine Nitrate Negative (NEGATIVE) 08/07/17 12:52 Urine Bilirubin Negative (NEGATIVE) 08/07/17 12:52 Urine Urobilinogen Normal mg/dL (0.2-1.0) 08/07/17 12:52 Ur Leukocyte Esterase Neg Donato/uL (Negative) 08/07/17 12:52 Urine WBC (Auto) 1 /hpf (0-5) 08/07/17 12:52 Urine RBC (Auto) < 1 /hpf (0-3) 08/07/17 12:52 Ur Squamous Epith Cells < 1 /hpf (0-5) 08/07/17 12:52 Hyaline Casts 3-5 /lpf (0-2) H 08/07/17 12:52 Urine Opiates Screen Negative (NEGATIVE) 08/07/17 12:52 Urine Methadone Screen Negative (NEGATIVE) 08/07/17 12:52 Ur Barbiturates Screen Negative (NEGATIVE) 08/07/17 12:52 Ur Phencyclidine Scrn Negative (NEGATIVE) 08/07/17 12:52 Ur Amphetamines Screen Negative (NEGATIVE) 08/07/17 12:52 U Benzodiazepines Scrn Negative (NEGATIVE) 08/07/17 12:52 U Oth Cocaine Metabols Negative (NEGATIVE) 08/07/17 12:52 U Cannabinoids Screen Negative (NEGATIVE) 08/07/17 12:52 RPR Nonreactive (NONREACTIVE) 08/08/17 13:37 Attending/Attestation - Attestation I have personally seen and examined this patient.: Yes I have fully participated in the care of the patient.: Yes I have reviewed all pertinent clinical information, including history, physical exam and plan: Yes
[2017-08-10 16:01] VITALS: BP 106/68; PULSE 72; RESP 20; TEMP 97.7; O2SAT 96
== END 2017-08-10 18:46 | DRG 56 ==
LOC: C.ER 07:58 → C.9E 13:41 → C.6T 22:07
PROVIDERS: ADMIT Internal Medicine; ATTEND Hospitalist
DX: G20 Parkinson's disease (principal); G92 Toxic encephalopathy; F01.51 Vascular dementia, unspecified severity, with behavioral disturbance; F25.9 Schizoaffective disorder, unspecified; G62.9 Polyneuropathy, unspecified; F32.9 Major depressive disorder, single episode, unspecified; F41.9 Anxiety disorder, unspecified; G47.00 Insomnia, unspecified; Z90.49 Acquired absence of other specified parts of digestive tract; K59.00 Constipation, unspecified; R63.4 Abnormal weight loss; R53.1 Weakness; G24.9 Dystonia, unspecified; M48.062 Spinal stenosis, lumbar region with neurogenic claudication; N40.0 Benign prostatic hyperplasia without lower urinary tract symptoms; T50.905A Adverse effect of unspecified drugs, medicaments and biological substances, initial encounter